=== PATIENT | female | born 1960 | race Caucasian/White ===

== ENCOUNTER 2022-01-09 11:02 | Emergency (ER) | payer BC ==
[~2022-01-09] VITALS: Ht 154.9 cm; Wt 44.0 kg
[2022-01-09 11:29] LABS: CLARITY,URINE CLOUDY (Clear); COLOR,URINE YELLOW (Yellow); GLUCOSE, URINE NEGATIVE (Neg); KETONES,URINE NEGATIVE (Neg); LEUKOCYTE ESTERASE ,URINE NEGATIVE (Neg); NITRITES, URINE POSITIVE (Neg); OCCULT BLOOD,URINE TRACE-INTACT (Neg); PROTEIN,URINE NEGATIVE (Neg); UROBILINOGEN,URINE 0.2 E.U/dL (0.2-1.0)
[2022-01-09 11:30] VITALS: BP 165/86
[2022-01-09 11:33] LABS: UA COLLECTION TYPE CLN CATCH MIDSTREAM
[2022-01-09 11:34] LABS: BACTERIA,URINE 4+ /HPF (Neg); MUCUS STRANDS NONE SEEN /LPF (Neg); RBC,URINE 0-2 /HPF (0-2); SQUAMOUS EPITHELIAL CELL,UR FEW /LPF (FEW)
[2022-01-09] MEDS ORDERED: CEPH-585 PO (11:44)
[2022-01-09] MEDS ORDERED: CEPH (11:44)
[2022-01-09] MEDS ORDERED: cephalexin 250mg capsule PO ONE (11:45)
== END 2022-01-09 11:55 | disposition home or self-care (01) ==
LOC: EEVIPCON 11:03 → ER 11:03
DX: N39.0 Urinary tract infection, site not specified (principal); R10.2 Pelvic and perineal pain; M54.50 Low back pain, unspecified; F17.200 Nicotine dependence, unspecified, uncomplicated; Z87.440 Personal history of urinary (tract) infections; Z88.8 Allergy status to other drugs, medicaments and biological substances; Z79.2 Long term (current) use of antibiotics
CPT/HCPCS: 81001; 87077; 87088; 87186; 99283

== ENCOUNTER 2022-10-22 14:40 | Outpatient (CLI) | payer BC ==
[~2022-10-22 14:40] MED LIST: CEPH; CEPH-585 PO
== END 2022-10-22 23:59 | disposition home or self-care (01) ==
LOC: RAD 14:40
PROVIDERS: ATTEND Student in an Organized Health Care Education/Training Program
DX: R22.1 Localized swelling, mass and lump, neck (principal)
CPT/HCPCS: 76536

== ENCOUNTER 2022-11-12 08:21 | Outpatient (CLI) | payer BC ==
[2022-11-12 11:31] LABS: ALBUMIN 3.9 G/DL (3.4-5.0); ANION GAP 7 (8-16); BLOOD UREA NITROGEN 26 MG/DL (7-18); BUN/CREATININE RATIO 36.6 (6.6-38.0); CHLORIDE 103 MMOL/L (99-107); CREATININE 0.71 MG/DL (0.40-0.90); GLUCOSE 93 MG/DL (70-104); POTASSIUM 3.7 MMOL/L (3.5-5.1); SODIUM 138 MMOL/L (135-145); TOTAL CARBON DIOXIDE 28.3 MMOL/L (24-32); eGFR 84 ML/MIN
[2022-11-12] MEDS ORDERED: iohexol 300mg/ml 100ml inj. ONE ×2 (14:47→15:08)
== END 2022-11-12 23:59 | disposition home or self-care (01) ==
LOC: RAD 08:21
PROVIDERS: ATTEND Student in an Organized Health Care Education/Training Program
DX: J43.9 Emphysema, unspecified (principal); R59.1 Generalized enlarged lymph nodes; R79.9 Abnormal finding of blood chemistry, unspecified; N64.89 Other specified disorders of breast; M47.812 Spondylosis without myelopathy or radiculopathy, cervical region; Z72.0 Tobacco use; Z98.82 Breast implant status
CPT/HCPCS: 36415; 70491; 71260; 80048; J3490; Q9967

== ENCOUNTER 2024-01-12 11:10 | Outpatient (CLI) | payer BC ==
[~2024-01-12 11:10] MED LIST changes: -CEPH-585 PO
[2024-01-13 19:25] LABS: FOLATE SERUM(FOLIC) 13.5 ng/mL (>3.0)
== END 2024-01-12 23:59 | disposition home or self-care (01) ==
LOC: LAB 11:10
PROVIDERS: ATTEND Family Medicine
DX: R53.83 Other fatigue (principal)
CPT/HCPCS: 36415; 82607; 82746

== ENCOUNTER 2024-01-17 09:11 | Outpatient (CLI) | payer BC ==
[2024-01-02 13:41] LABS: BASOPHILS % (AUTO) 0.6 % (0-1); EOSINOPHILS # (AUTO) 0.2 X10'3 (0-0.9); EOSINOPHILS % (AUTO) 2.6 % (0-6); HEMATOCRIT 40.9 % (35.0-45.0); HEMOGLOBIN 13.7 g/dl (12.0-16.0); LYMPHOCYTES # (AUTO) 2.7 X10'3 (1.1-4.8); LYMPHOCYTES % (AUTO) 35.2 % (21-51); MEAN CORPUSCULAR HEMOGLOBIN 33.6 PG (27.0-31.0); MEAN CORPUSCULAR HGB CONC 33.5 g/dL (33.0-36.5); MEAN CORPUSCULAR VOLUME 100.3 FL (78-98); MEAN PLATELET VOLUME 8.1 FL (7.4-10.4); MONOCYTES # (AUTO) 0.4 X10'3 (0-0.9); MONOCYTES % (AUTO) 5.7 % (2-12); NEUTROPHILS # (AUTO) 4.3 X10'3 (1.8-7.7); NEUTROPHILS % (AUTO) 55.9 % (42-75); PLATELET COUNT 240 X10'3 (140-440); RED BLOOD COUNT 4.07 X10'6 (4.20-5.60); RED CELL DISTRIBUTION WIDTH 15.1 % (11.5-14.5); WHITE BLOOD COUNT 7.7 X10'3 (4.5-11.0)
[2024-01-02 14:21] LABS: RHEUM FACTOR QUAL REFLEX TITER NEGATIVE (Neg)
[2024-01-02 14:32] LABS: ALANINE AMINOTRANSFERASE 28 U/L (12-78); ALBUMIN 3.8 G/DL (3.4-5.0); ALBUMIN/GLOBULIN RATIO 1.1 (1.1-1.5); ALKALINE PHOSPHATASE 114 IU/L (46-116); ANION GAP 8 (8-16); ASPARTATE AMINO TRANSFERASE 27 U/L (10-37); BILIRUBIN,TOTAL 0.4 MG/DL (0.1-1.0); BLOOD UREA NITROGEN 22 MG/DL (7-18); BUN/CREATININE RATIO 26.5 (10.0-20.0); CALCIUM 8.5 MG/DL (8.5-10.1); CHLORIDE 103 MMOL/L (99-107); CREATININE 0.83 MG/DL (0.40-0.90); FREE T4 (FREE THYROXINE) 0.83 NG/DL (0.73-1.40); GLUCOSE 103 MG/DL (70-104); HDL CHOLESTEROL 63 MG/DL (35-60); LDL CHOLESTEROL 93 MG/DL (50-100); POTASSIUM 3.8 MMOL/L (3.5-5.1); SODIUM 140 MMOL/L (135-145); TOTAL CARBON DIOXIDE 29.2 MMOL/L (24-32); TOTAL PROTEIN 7.2 G/DL (6.4-8.2); TRIGLYCERIDES 137 MG/DL (20-135); eGFR 70 ML/MIN
[2024-01-02 15:12] LABS: CHOL/HDL RATIO 2.9 (0.00-4.99); CHOLESTEROL 182 MG/DL (0-200); THYROID STIMULATING HORMONE 2.86 ulU/ml (0.34-4.50)
== END 2024-01-17 23:59 | disposition home or self-care (01) ==
LOC: RAD 09:11
PROVIDERS: ATTEND Family Medicine
DX: J43.9 Emphysema, unspecified (principal); I70.0 Atherosclerosis of aorta; N64.89 Other specified disorders of breast; R91.8 Other nonspecific abnormal finding of lung field; Z00.01 Encounter for general adult medical examination with abnormal findings; F17.210 Nicotine dependence, cigarettes, uncomplicated; M19.041 Primary osteoarthritis, right hand; M19.042 Primary osteoarthritis, left hand; Z98.82 Breast implant status
CPT/HCPCS: 36415; 71271; 73130; 80053; 80061; 84439; 84443; 84550; 85025; 86038; 86430